=== PATIENT | male | born 1945 | race Caucasian/White ===

== ENCOUNTER → 2021-07-25 | Outpatient (CLI) | payer OTHER ==
[2021-07-25 19:01] LABS: BASOPHILS ABSOLUTE AUTO 0.03 K/mm3 (0.00-0.23); BASOPHILS PERCENT AUTO 0 % (0-2); EOSINOPHILS ABSOLUTE AUTO 0.07 K/mm3 (0.00-0.68); EOSINOPHILS PERCENT AUTO 1 % (0-6); Hematocrit 37.9 % (37.0-53.0); Hemoglobin 12.8 g/dL (13.5-17.5); IMMATURE GRAN ABSOLUTE AUTO 0.03 K/mm3 (0.00-0.10); IMMATURE GRAN PERCENT AUTO 0 % (0-1); LYMPHOCYTES ABSOLUTE AUTO 0.79 K/mm3 (0.84-5.20); LYMPHOCYTES PERCENT AUTO 11 % (21-46); MONOCYTES ABSOLUTE AUTO 0.55 K/mm3 (0.16-1.47); MONOCYTES PERCENT AUTO 8 % (4-13); Mean Corpuscular HGB 30.6 pg (26.0-34.0); Mean Corpuscular HGB Conc 33.8 g/dL (31.5-36.5); Mean Corpuscular Volume 91 fL (80-100); Mean Platelet Volume 10.1 fL (9.1-12.4); NEUTROPHILS ABSOLUTE AUTO 5.81 K/mm3 (1.96-9.15); NEUTROPHILS PERCENT AUTO 80 % (41-73); Platelet Count 321 K/mm3 (150-400); RDW Coefficient Variation 13.3 % (11.7-14.2); RDW Standard Deviation 43.7 fL (35.1-46.3); Red Blood Cell Count 4.18 M/mm3 (4.30-5.90); White Blood Cell Count 7.28 K/mm3 (4.00-11.30)
[2021-07-25 19:18] LABS: Alanine Aminotransfer (ALT/SGP 30 U/L (12-78); Albumin, Blood 3.8 g/dL (3.4-5.0); Albumin/Globulin Ratio 1.5 (0.8-1.8); Alk Phos 62 U/L (40-126); Anion Gap 5 mmol/L (6-16); Aspartate Aminotrans (AST/SGOT 19 U/L (12-37); Bilirubin, Total 0.4 mg/dL (0.1-1.0); Blood Urea Nitrogen 20 mg/dL (8-24); Bun/Creatinine Ratio 23.5 (12.0-20.0); CO2, Blood 30 mmol/L (21-32); Calcium, Blood 8.8 mg/dL (8.5-10.1); Chloride, Blood 106 mmol/L (98-108); Creatinine, Blood 0.85 mg/dL (0.60-1.20); Globulin, Blood 2.5 g/dL (2.2-4.0); Glomerular Filtration Rate >60 (60-); Glucose, Blood 108 mg/dL (70-99); Potassium, Blood 4.1 mmol/L (3.5-5.5); Sodium, Blood 141 mmol/L (136-145); Total Protein, Blood 6.3 g/dL (6.4-8.2)
== END | disposition home or self-care (01) ==
LOC: LAB SHORT 18:55
PROVIDERS: Physician Assistant
DX: R60.0 Localized edema (principal)
CPT/HCPCS: 80053; 83880; 85025

== ENCOUNTER 2022-03-18 00:43 | Emergency (ER) | payer OTHER ==
[~2022-03-18] VITALS: Ht 185.4 cm; Wt 68.0 kg
[2022-03-18 02:37] LABS: BASOPHILS ABSOLUTE AUTO 0.04 K/mm3 (0.00-0.23); BASOPHILS PERCENT AUTO 1 % (0-2); EOSINOPHILS ABSOLUTE AUTO 0.19 K/mm3 (0.00-0.68); EOSINOPHILS PERCENT AUTO 3 % (0-6); Hematocrit 33.9 % (37.0-53.0); Hemoglobin 11.5 g/dL (13.5-17.5); IMMATURE GRAN ABSOLUTE AUTO 0.01 K/mm3 (0.00-0.10); IMMATURE GRAN PERCENT AUTO 0 % (0-1); LYMPHOCYTES ABSOLUTE AUTO 1.24 K/mm3 (0.84-5.20); LYMPHOCYTES PERCENT AUTO 17 % (21-46); MONOCYTES ABSOLUTE AUTO 0.76 K/mm3 (0.16-1.47); MONOCYTES PERCENT AUTO 11 % (4-13); Mean Corpuscular HGB 30.3 pg (26.0-34.0); Mean Corpuscular HGB Conc 33.9 g/dL (31.5-36.5); Mean Corpuscular Volume 89 fL (80-100); Mean Platelet Volume 10.1 fL (9.1-12.4); NEUTROPHILS ABSOLUTE AUTO 5.02 K/mm3 (1.96-9.15); NEUTROPHILS PERCENT AUTO 69 % (41-73); Platelet Count 268 K/mm3 (150-400); RDW Coefficient Variation 13.1 % (11.7-14.2); RDW Standard Deviation 42.6 fL (35.1-46.3); White Blood Cell Count 7.26 K/mm3 (4.00-11.30)
[2022-03-18 02:54] LABS: Albumin, Blood 3.1 g/dL (3.4-5.0); Albumin/Globulin Ratio 1.2 (0.8-1.8); Bilirubin, Total 0.3 mg/dL (0.1-1.0); Bun/Creatinine Ratio 25.2 (12.0-20.0); Creatinine, Blood 0.79 mg/dL (0.60-1.20); Globulin, Blood 2.5 g/dL (2.2-4.0); Potassium, Blood 4.2 mmol/L (3.5-5.5); Total Protein, Blood 5.6 g/dL (6.4-8.2)
[2022-03-18 04:49] LABS: Source, Urine Straight Cath
[2022-03-18 05:09] LABS: Appearance, Urine Clear (Clear); Bilirubin, Urine Neg (Neg); Blood, Urine Neg (Neg); Color, Urine Yellow (P-Yellow); Glucose Qualitative, Urine Neg (Neg); Ketones, Urine 1+ (Neg); Leukocyte Esterase, Urine 1+ (Neg); Nitrite, Urine Neg (Neg); Protein, Urine 1+ (Neg); Specific Gravity, Urine 1.025 (1.003-1.022); Urobilinogen, Urine NORM (Normal)
[2022-03-18 05:30] LABS: Bacteria Rare /hpf; Red Blood Cells, Urine Not Seen /hpf (0-2); Squamous Epithelial Cells Rare /hpf (Few); White Blood Cells, Urine 0-2 /hpf (0-5)
[2022-03-18] MEDS ORDERED: POLYTRIM EYE DR10 M1 BOTHEYES (05:40)
== END 2022-03-18 06:25 | disposition home or self-care (01) ==
LOC: ER 00:43
PROVIDERS: Student in an Organized Health Care Education/Training Program
DX: Z04.3 Encounter for examination and observation following other accident (principal); H10.9 Unspecified conjunctivitis
CPT/HCPCS: 36415; 70450; 80053; 81001; 85025; 87086; A9270

== ENCOUNTER 2022-04-02 08:09 | Emergency (ER) | payer OTHER ==
[~2022-04-02] VITALS: Ht 185.4 cm; Wt 54.4 kg
[~2022-04-02 08:09] MED LIST: POLYTRIM EYE DR10 M1 BOTHEYES
[2022-04-02] MEDS ORDERED: Acetaminophen650 M1 PO (08:36)
[2022-04-02] MEDS ORDERED: ALUMINUM H320 MG/5 M PO (08:37)
[2022-04-02] MEDS ORDERED: Fiber625 MG PO (08:37)
[2022-04-02] MEDS ORDERED: HALO.5 PO (08:38)
[2022-04-02] MEDS ORDERED: FISH OIL 1,2001 EAC7 PO (08:38)
[2022-04-02] MEDS ORDERED: HYDHCL25 PO (08:41)
[2022-04-02] MEDS ORDERED: LOPE2C PO (08:41)
[2022-04-02] MEDS ORDERED: PROBIOTIC1 EA13 PO (08:42)
[2022-04-02] MEDS ORDERED: MIRALAX119 G2 PO (08:42)
[2022-04-02] MEDS ORDERED: PRESERVISION A1 EAC2 PO (08:42)
[2022-04-02] MEDS ORDERED: TRAZ50 PO (08:43)
[2022-04-02] MEDS ORDERED: Vitamin B-12100 MCG PO (08:43)
[2022-04-02] MEDS ORDERED: ZINC OXIDE57 GM TOP (08:43)
[2022-04-02] MEDS ORDERED: SENNA LAXATIVE8.6 MG PO (08:43)
[2022-04-02] MEDS ORDERED: THERA-D2000 UNIT PO (08:44)
== END 2022-04-02 10:01 | disposition home or self-care (01) ==
LOC: ER 08:09
DX: S09.90XA Unspecified injury of head, initial encounter (principal); W19.XXXA Unspecified fall, initial encounter
CPT/HCPCS: 70450; 72125

== ENCOUNTER 2022-09-22 13:44 | Emergency (ER) | payer OTHER ==
[~2022-09-22] VITALS: Ht 185.4 cm; Wt 65.8 kg
[~2022-09-22 13:44] MED LIST changes: +ALUMINUM H320 MG/5 M PO; +Acetaminophen650 M1 PO; +FISH OIL 1,2001 EAC7 PO; +Fiber625 MG PO; +HALO.5 PO; +HYDHCL25 PO; +LOPE2C PO; +MIRALAX119 G2 PO; +PRESERVISION A1 EAC2 PO; +PROBIOTIC1 EA13 PO; +SENNA LAXATIVE8.6 MG PO; +THERA-D2000 UNIT PO; +TRAZ50 PO; +Vitamin B-12100 MCG PO; +ZINC OXIDE57 GM TOP
[2022-09-22] MEDS ORDERED: RISP.5 PO (14:25)
[2022-09-22] MEDS ORDERED: ERYT.5TO BOTHEYES (14:26)
[2022-09-22 15:05] LABS: BASOPHILS ABSOLUTE AUTO 0.04 K/mm3 (0.00-0.23); BASOPHILS PERCENT AUTO 0 % (0-2); EOSINOPHILS ABSOLUTE AUTO 0.25 K/mm3 (0.00-0.68); EOSINOPHILS PERCENT AUTO 2 % (0-6); Hematocrit 35.1 % (37.0-53.0); Hemoglobin 11.7 g/dL (13.5-17.5); IMMATURE GRAN ABSOLUTE AUTO 0.04 K/mm3 (0.00-0.10); IMMATURE GRAN PERCENT AUTO 0 % (0-1); LYMPHOCYTES ABSOLUTE AUTO 0.76 K/mm3 (0.84-5.20); LYMPHOCYTES PERCENT AUTO 7 % (21-46); MONOCYTES PERCENT AUTO 10 % (4-13); Mean Corpuscular HGB Conc 33.3 g/dL (31.5-36.5); Mean Corpuscular Volume 93 fL (80-100); Mean Platelet Volume 9.6 fL (9.1-12.4); NEUTROPHILS ABSOLUTE AUTO 8.44 K/mm3 (1.96-9.15); NEUTROPHILS PERCENT AUTO 80 % (41-73); Platelet Count 287 K/mm3 (150-400); RDW Coefficient Variation 13.9 % (11.7-14.2); RDW Standard Deviation 47.4 fL (35.1-46.3); Red Blood Cell Count 3.78 M/mm3 (4.30-5.90); White Blood Cell Count 10.53 K/mm3 (4.00-11.30)
[2022-09-22 15:34] LABS: Albumin, Blood 3.2 g/dL (3.4-5.0); Albumin/Globulin Ratio 1.1 (0.8-1.8); Bilirubin, Total 0.3 mg/dL (0.1-1.0); Bun/Creatinine Ratio 32.7 (12.0-20.0); Creatinine, Blood 0.7 mg/dL (0.60-1.20); Globulin, Blood 2.8 g/dL (2.2-4.0); Potassium, Blood 4.4 mmol/L (3.5-5.5)
[2022-09-22 17:00] VITALS: BP 135/87
== END 2022-09-22 17:33 | disposition home or self-care (01) ==
LOC: ER 13:44
PROVIDERS: Emergency Medicine
DX: M79.604 Pain in right leg (principal); W19.XXXA Unspecified fall, initial encounter; Z79.899 Other long term (current) drug therapy
CPT/HCPCS: 36415; 70450; 72170; 80053; 85025; 93005; 93010

== ENCOUNTER 2022-09-24 15:00 | Emergency (ER) | payer OTHER ==
[~2022-09-24] VITALS: Ht 185.4 cm; Wt 65.8 kg
[~2022-09-24 15:00] MED LIST changes: +ERYT.5TO BOTHEYES; +RISP.5 PO
[2022-09-24 16:30] VITALS: BP 90/31
== END 2022-09-24 17:11 | disposition home or self-care (01) ==
LOC: ER 15:00
DX: M79.604 Pain in right leg (principal); W18.30XA Fall on same level, unspecified, initial encounter; Z79.899 Other long term (current) drug therapy
CPT/HCPCS: 70450; 72170; 73552

== ENCOUNTER 2023-01-09 14:59 | Emergency (ER) | payer OTHER ==
[~2023-01-09] VITALS: Ht 175.3 cm; Wt 68.0 kg
[~2023-01-09 14:59] MED LIST changes: +CODACE30 PO
[2023-01-09 15:35] VITALS: BP 117/71
[2023-01-09] MEDS ORDERED: ACET500 PO (17:12)
== END 2023-01-09 19:04 | disposition home or self-care (01) ==
LOC: ER 14:59
DX: S70.02XA Contusion of left hip, initial encounter (principal); W19.XXXA Unspecified fall, initial encounter; Z79.2 Long term (current) use of antibiotics; Z79.02 Long term (current) use of antithrombotics/antiplatelets; Z79.890 Hormone replacement therapy; Z79.899 Other long term (current) drug therapy
CPT/HCPCS: 73502; 99284-25; A9270

== ENCOUNTER 2023-01-25 15:23 | Inpatient (IN) | payer OTHER ==
[~2023-01-25] VITALS: Ht 180.3 cm; Wt 66.2 kg
[~2023-01-25 15:23] MED LIST changes: +ACET500 PO
[2023-01-25 19:15] VITALS: BP 148/87
[2023-01-25 19:29] LABS: BASOPHILS ABSOLUTE AUTO 0.03 K/mm3 (0.00-0.23); BASOPHILS PERCENT AUTO 0 % (0-2); EOSINOPHILS ABSOLUTE AUTO 0.12 K/mm3 (0.00-0.68); EOSINOPHILS PERCENT AUTO 1 % (0-6); Hematocrit 38.1 % (37.0-53.0); Hemoglobin 12.7 g/dL (13.5-17.5); IMMATURE GRAN ABSOLUTE AUTO 0.06 K/mm3 (0.00-0.10); IMMATURE GRAN PERCENT AUTO 0 % (0-1); LYMPHOCYTES ABSOLUTE AUTO 1.14 K/mm3 (0.84-5.20); LYMPHOCYTES PERCENT AUTO 8 % (21-46); MONOCYTES ABSOLUTE AUTO 0.69 K/mm3 (0.16-1.47); MONOCYTES PERCENT AUTO 5 % (4-13); Mean Corpuscular HGB 30.5 pg (26.0-34.0); Mean Corpuscular HGB Conc 33.3 g/dL (31.5-36.5); Mean Corpuscular Volume 91 fL (80-100); NEUTROPHILS ABSOLUTE AUTO 11.65 K/mm3 (1.96-9.15); NEUTROPHILS PERCENT AUTO 85 % (41-73); Platelet Count 336 K/mm3 (150-400); RDW Coefficient Variation 13.4 % (11.7-14.2); RDW Standard Deviation 44.8 fL (35.1-46.3); Red Blood Cell Count 4.17 M/mm3 (4.30-5.90); White Blood Cell Count 13.69 K/mm3 (4.00-11.30)
[2023-01-25 19:45] LABS: Albumin, Blood 3.7 g/dL (3.4-5.0); Albumin/Globulin Ratio 1.2 (0.8-1.8); Bilirubin, Total 0.2 mg/dL (0.1-1.0); Bun/Creatinine Ratio 37.6 (12.0-20.0); Calcium, Blood 9.1 mg/dL (8.5-10.1); Creatinine, Blood 0.69 mg/dL (0.60-1.20); Potassium, Blood 3.9 mmol/L (3.5-5.5); Total Protein, Blood 6.7 g/dL (6.4-8.2)
[2023-01-26] VITALS (14 sets, daily range): BP systolic 97–146; BP diastolic 58–84
[2023-01-26 05:34] LABS: BASOPHILS ABSOLUTE AUTO 0.02 K/mm3 (0.00-0.23); BASOPHILS PERCENT AUTO 0 % (0-2); EOSINOPHILS ABSOLUTE AUTO 0.09 K/mm3 (0.00-0.68); EOSINOPHILS PERCENT AUTO 1 % (0-6); Hematocrit 35.2 % (37.0-53.0); Hemoglobin 11.9 g/dL (13.5-17.5); IMMATURE GRAN ABSOLUTE AUTO 0.05 K/mm3 (0.00-0.10); IMMATURE GRAN PERCENT AUTO 0 % (0-1); LYMPHOCYTES ABSOLUTE AUTO 0.62 K/mm3 (0.84-5.20); LYMPHOCYTES PERCENT AUTO 5 % (21-46); MONOCYTES ABSOLUTE AUTO 1.03 K/mm3 (0.16-1.47); MONOCYTES PERCENT AUTO 8 % (4-13); Mean Corpuscular HGB 30.5 pg (26.0-34.0); Mean Corpuscular HGB Conc 33.8 g/dL (31.5-36.5); Mean Corpuscular Volume 90 fL (80-100); Mean Platelet Volume 10.4 fL (9.1-12.4); NEUTROPHILS PERCENT AUTO 87 % (41-73); Platelet Count 295 K/mm3 (150-400); RDW Coefficient Variation 13.6 % (11.7-14.2); RDW Standard Deviation 44.9 fL (35.1-46.3); White Blood Cell Count 13.51 K/mm3 (4.00-11.30)
[2023-01-26 06:05] LABS: Bun/Creatinine Ratio 28.4 (12.0-20.0); Calcium, Blood 8.7 mg/dL (8.5-10.1); Creatinine, Blood 0.81 mg/dL (0.60-1.20); Potassium, Blood 4.1 mmol/L (3.5-5.5)
[2023-01-27 04:13] VITALS: BP 134/70
[2023-01-27 05:05] LABS: BASOPHILS ABSOLUTE AUTO 0.02 K/mm3 (0.00-0.23); BASOPHILS PERCENT AUTO 0 % (0-2); EOSINOPHILS ABSOLUTE AUTO 0.12 K/mm3 (0.00-0.68); EOSINOPHILS PERCENT AUTO 1 % (0-6); Hematocrit 32.4 % (37.0-53.0); Hemoglobin 10.7 g/dL (13.5-17.5); IMMATURE GRAN ABSOLUTE AUTO 0.03 K/mm3 (0.00-0.10); IMMATURE GRAN PERCENT AUTO 0 % (0-1); LYMPHOCYTES ABSOLUTE AUTO 0.87 K/mm3 (0.84-5.20); LYMPHOCYTES PERCENT AUTO 8 % (21-46); MONOCYTES ABSOLUTE AUTO 1.01 K/mm3 (0.16-1.47); MONOCYTES PERCENT AUTO 9 % (4-13); Mean Corpuscular HGB 30.5 pg (26.0-34.0); Mean Corpuscular Volume 92 fL (80-100); Mean Platelet Volume 10.6 fL (9.1-12.4); NEUTROPHILS ABSOLUTE AUTO 8.73 K/mm3 (1.96-9.15); NEUTROPHILS PERCENT AUTO 81 % (41-73); Platelet Count 243 K/mm3 (150-400); RDW Coefficient Variation 13.8 % (11.7-14.2); RDW Standard Deviation 46.4 fL (35.1-46.3); Red Blood Cell Count 3.51 M/mm3 (4.30-5.90); White Blood Cell Count 10.78 K/mm3 (4.00-11.30)
--- NOTE | 2023-01-27 05:25 | NUR ---
SHIFT SUMMARY PT HAS ADVANCED DEMENTIA, NONVERBAL. NO ACUTE CHANGES, VSS. MEDICATING FOR PAIN PER EMAR. TOLERATING PO INTAKE. PT HAS NOT BEEN OUT OF BED YET, BUT WBAT ON LEFT LEG. PT IS INCONTINENT AND UNABLE TO COMMUNICATE NEEDS, ATTENDS IN PLACE. AQUACEL TO L HIP C/D/I. BED IN LOWEST POSITION, ALARM ON. CALL LIGHT WITHIN REACH.
[2023-01-27 06:28] LABS: Albumin, Blood 2.9 g/dL (3.4-5.0); Anion Gap 3 mmol/L (6-16); Blood Urea Nitrogen 27 mg/dL (8-24); Bun/Creatinine Ratio 30.8 (12.0-20.0); CO2, Blood 27 mmol/L (21-32); Calcium, Blood 8.7 mg/dL (8.5-10.1); Chloride, Blood 108 mmol/L (98-108); Creatinine, Blood 0.88 mg/dL (0.60-1.20); Glomerular Filtration Rate 89 (60-); Glucose, Blood 122 mg/dL (70-99); Phosphorus, Blood 2.2 mg/dL (2.5-4.9); Potassium, Blood 4.1 mmol/L (3.5-5.5); Sodium, Blood 138 mmol/L (136-145)
[2023-01-27 07:13] VITALS: BP 114/70
--- NOTE | 2023-01-27 13:10 | NUR ---
Pt. is awake in med when I entered the room. Pt. is pleasantly confused and other than nods did not verbally communicate. Though Pt. did not respond, prayer was offered and given.
[2023-01-27 15:49] VITALS: BP 112/81
--- NOTE | 2023-01-27 17:53 | NUR ---
POD1 L POSERTIOR GENA HIP, A/XO4, VSS, TOLERATING PO WITH FEEDING ASSISTANCE, MINIMAL FLUID INTAKE SO FAR THIS SHIFT HE DOESN'T SEEM TO DRINK ON HIS OWN, BLADDER SCAN SHOWS LESS THAN 300ML. DC PLANNING PENDING RESPONSE FROM [facility]. NO ACUTE EVENTS THIS SHIFT, CALL LIGHT IN REACH.
[2023-01-27 19:48] VITALS: BP 123/75
--- NOTE | 2023-01-28 05:18 | NUR ---
SHIFT SUMMARY POD 2 L GENA ARTHRO OF HIP. POSTERIOR HIP PRECAUTIONS IN PLACE. AQUACEL IN PLACE, C/D/I. HX OF ADVANCED DEMENTIA, GRABBY WHILE RECEIVING CARE. PT ALERT, OFTEN MUMBLES WHEN ATTEMPTING TO COMMUNICATE AND UNABLE TO ANSWER QUESTIONS. VSS, INCONT X3 THIS SHIFT W/ ATTENDS IN PLACE. IV FLUIDS ORDERED R/T DECREASE IN ORAL INTAKE. PT MEDS ADMINISTERED CRUSHED IN APPLESAUSE AND TOLERATED WELL. PT SLEPT WELL T/O NIGHT. NO ACUTE CHANGES THIS SHIFT. CALL LIGHT W/IN REACH ALTHOUGH PT NOT COGNITIVELY ABLE TO USE. FREQUENT MONITORING.
[2023-01-28 06:24] VITALS: BP 104/62
[2023-01-28 07:31] VITALS: BP 103/52
--- NOTE | 2023-01-28 12:02 | NUR ---
Met with patient and his and Dr. Negron. review of prognosis and how this event could possibly enhance his progression of his disease. Dr Negron reviewed possible rehab as option but limited. would like to try. Review of if rehab not progressing or to much stress suggest transitioning to hospice. Review of offering dignity and comfort and him not coming into ER or hospital admissions. was very understancing and accepting of the offered caree plan. 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
[2023-01-28 14:28] VITALS: BP 116/70
--- NOTE | 2023-01-28 16:28 | NUR ---
SHIFT SUMMARY- PT IS ALERT AND PLESANT. HIS SPEECH IS MUMBLED. FAMILY WAS AT BEDSIDE THIS SHIFT. , DR. HARTLEY AND WILD FROM [facility] SPOKE WITH TO DISCUSS PLAN AFTER DISCHARGE. UNCLEAR AT THIS POINT IF PT WILL BE RETURNING TO [facility] OR NOT. HE RECIEVED A BEDBATH THIS SHIFT. MEDICATED PRIOR TO BATH. PT APPETITE IS POOR, HE DID EAT APPLESAUSE AND DRANK HIS V8 FROM A SPOON, ORDERED A PUREE DIET FOR DINNER TO SEE IF HE TOLORATES THIS BETTER. HIS BED IS IN THE LOW POSITION AND CALL LIGHT IS WITIN REACH/
[2023-01-28 19:46] VITALS: BP 117/86
[2023-01-29 03:12] VITALS: BP 115/81
--- NOTE | 2023-01-29 03:51 | NUR ---
O2 SAT OF 89 DONE AT 0312 WAS AN INACCURATE READING DUE TO MOVEMENT. RECHECKED AND O2 SAT WAS UP TO 96
[2023-01-29 07:24] VITALS: BP 111/64
--- NOTE | 2023-01-29 07:24 | NUR ---
SUMMARY DIFFICULT TO INCREASE ACTIVITY DUE TO LIMITATION OF ALZHEIMERS.
[2023-01-29 14:41] VITALS: BP 94/66
--- NOTE | 2023-01-29 17:54 | NUR ---
SHIFT SUMMARY PT PLEASANT, REPOSITIONS WITH ASSIST, FULL MEAL ASSIST/ATE ALL BREAKFAST AND LUNCH, INCONTINENT/ATTENDS ON, PAIN WORSENS WITH REPOSITIONS, BOWEL CARE STARTED TODAY. WILL REPORT TO ONCOMING ANDRY RN.
[2023-01-29 19:29] VITALS: BP 118/65
[2023-01-30 02:50] VITALS: BP 127/73
[2023-01-30 07:00] VITALS: BP 104/63
--- NOTE | 2023-01-30 08:03 | NUR ---
SUMMARY PT CONT CONFUSED AND UNABLE TO PARTICIPATE IN CARE.
[2023-01-30 14:52] VITALS: BP 104/64
--- NOTE | 2023-01-30 16:08 | NUR ---
SUMMARY: PT IS S/P L HIP REPAIR, VSS. SEVER DEMENTIA, DISORIENTED AND DOES NOT RESPOND TO QUESTIONS AT BASELINE. NO ACUTE CHANGE TODAY, ALERT AND DIFFICULT TO GIVE CARE, AND TURN WITH PT CONFUSION AND ANXIETY. WHEN PT NOT BEING REPOSITIONED, PT APPEARS COMFORTABLE AND RESTFUL. SURGICAL SITE WNL. NEW PREVENTATIVE MEPLIEX PLACED TO COCCYX. PT GIVEN TYLENOL PRN FOR PAIN WHEN STAFF REPOSITION AND CHANGE. PT HAD BM TODAY AND IS VOIDING WELL. SEE LIQUOR GRINDING MILL OPERATOR NOTES FOR PLAN, OPTION OF SNF VS. HOME ON COMFORT CARE DISCUSSED WITH PT AND DAUGHTER TODAY.
[2023-01-30 19:53] VITALS: BP 95/58
[2023-01-31 03:32] VITALS: BP 97/63
[2023-01-31 05:03] LABS: BASOPHILS ABSOLUTE AUTO 0.03 K/mm3 (0.00-0.23); BASOPHILS PERCENT AUTO 1 % (0-2); EOSINOPHILS ABSOLUTE AUTO 0.28 K/mm3 (0.00-0.68); EOSINOPHILS PERCENT AUTO 6 % (0-6); Hematocrit 30.5 % (37.0-53.0); Hemoglobin 10.1 g/dL (13.5-17.5); IMMATURE GRAN ABSOLUTE AUTO 0.01 K/mm3 (0.00-0.10); IMMATURE GRAN PERCENT AUTO 0 % (0-1); LYMPHOCYTES ABSOLUTE AUTO 1.07 K/mm3 (0.84-5.20); LYMPHOCYTES PERCENT AUTO 22 % (21-46); MONOCYTES ABSOLUTE AUTO 0.57 K/mm3 (0.16-1.47); MONOCYTES PERCENT AUTO 12 % (4-13); Mean Corpuscular HGB 30.3 pg (26.0-34.0); Mean Corpuscular HGB Conc 33.1 g/dL (31.5-36.5); Mean Corpuscular Volume 92 fL (80-100); Mean Platelet Volume 9.6 fL (9.1-12.4); NEUTROPHILS PERCENT AUTO 61 % (41-73); Platelet Count 298 K/mm3 (150-400); RDW Coefficient Variation 13.2 % (11.7-14.2); RDW Standard Deviation 43.8 fL (35.1-46.3); Red Blood Cell Count 3.33 M/mm3 (4.30-5.90); White Blood Cell Count 4.96 K/mm3 (4.00-11.30)
[2023-01-31 05:53] LABS: Albumin, Blood 2.4 g/dL (3.4-5.0); Anion Gap 4 mmol/L (6-16); Blood Urea Nitrogen 17 mg/dL (8-24); Bun/Creatinine Ratio 25.4 (12.0-20.0); CO2, Blood 28 mmol/L (21-32); Calcium, Blood 8.4 mg/dL (8.5-10.1); Chloride, Blood 107 mmol/L (98-108); Creatinine, Blood 0.67 mg/dL (0.60-1.20); Glomerular Filtration Rate 97 (60-); Glucose, Blood 106 mg/dL (70-99); Phosphorus, Blood 3.6 mg/dL (2.5-4.9); Potassium, Blood 4.2 mmol/L (3.5-5.5); Sodium, Blood 139 mmol/L (136-145)
--- NOTE | 2023-01-31 07:27 | NUR ---
SHIFT SUMMARY POD #5 L.GENA NO ACUTE CHANGES NOTED THROUGH THE NIGHT, ON RA, VSS, Q2 TURNS, ATTENDS CHANGED PRN, VOIDING WNL, PT WAS GIVEN ULTRAM & TYLENOL X1 FOR PAIN, PT APPEARS TO BE COMFORTABLE AT REST BUT BECOMES ANXIOUS & SHOWS SIGNS OF PAIN WITH MOVEMENT, NO CHANGES IN REACTION NOTED AFTER PAIN MEDS WERE GIVEN, REPORT GIVEN TO DAY RN, CALL LIGHT IN REACH, BED ALARM IS ON FOR SAFETY.
--- NOTE | 2023-01-31 09:53 | NUR ---
PRE MEDICATED FOR EVAL BY [facility]. PT TOOK SOME MORNING MEDICATIONS BEFORE REFUSING TO OPEN MOUTH & TAKE ANYMORE.
[2023-01-31 11:11] VITALS: BP 107/51
[2023-01-31 16:26] VITALS: BP 91/53
--- NOTE | 2023-01-31 18:31 | NUR ---
SHIFT SUMMARY WAS ABLE TO WORK w/ THERAPY & BE EVALUATED BY [facility]. PLAN TO DC TO [facility] MOST LIKELY THURSDAY. DENIED BREAKFAST BUT ATE 100% LUNCH & DINNER. SCHED TYLENOL & TRAMADOL x 1.
[2023-01-31 19:14] VITALS: BP 98/58
[2023-02-01 03:42] VITALS: BP 88/55
--- NOTE | 2023-02-01 04:32 | NUR ---
SHIFT SUMMARY POD 6 L GENA HIP. NO ACUTE CHANGES OVERNIGHT. VS WNL FOR PT, O2 SAT >95% ON RA. AQUACEL C/D/I. MEPILEX IN PLACE OVER COCCYX. HX SEVERE DEMENTIA, PT DOES NOT VERBALLY RESPOND TO QUESTIONS. WHILE LYING IN BED, PT APPEARS TO BE COMFORTABLE. PT HAS INCREASED AGITATION WHEN BEING REPOSITIONED. TOLERATING PO DIET. PT INCONTINENT, ATTENS IN PLACE. PT IS PLANNING TO D/C LATER TODAY TO [facility]. BED IN LOWEST POSITION, BED ALARM ON, WILL REPORT TO DAY NURSE.
[2023-02-01 05:08] VITALS: BP 105/73
[2023-02-01 07:25] VITALS: BP 112/65
[2023-02-01 14:26] VITALS: BP 99/68
--- NOTE | 2023-02-01 16:06 | NUR ---
SHIFT SUMMARY NO ACUTE CHANGES THIS SHIFT. PT ALERT AND ONLY ORIENTED TO SELF. HAS BEEN RESTING IN BED TODAY. APPEARS TO BE COMFORTABLE AT REST AND ONLY APPEARS TO BE IN PAIN WITH MOVEMENT OR REPOSITIONING. SCHEDULED TYLENOL FOR PAIN MANAGEMENT. AQUACEL DRESSING TO LEFT HIP REMAINS CDI. ATTENDS CHANGES PRN. PLAN FOR PT TO DISCHARGE BACK TO [facility] TOM[facility]ROW. FAMILY VISITED TODAY. CALL LIGHT WITHIN REACH. BED ALARM IN PLACE.
[2023-02-01 19:06] VITALS: BP 110/67
[2023-02-02 03:34] VITALS: BP 116/67
--- NOTE | 2023-02-02 04:40 | NUR ---
SHIFT SUMMARY POD 7 L GENA HIP. AQUACEL C/D/I. NO ACUTE CHANGES THIS SHIFT. VS WNL ON RA. PT APPEARS COMFORTABLE AT REST. PREMEDICATED FOR ATTENS CHANGE AND ROMA CARE, PT CONTINUES TO SHOW SIGNS OF PAIN WITH MOVEMENT. SMEAR BM THIS SHIFT. PT APPEARS COMFORTABLE WHEN RESTING IN BED. ANTICIPATED D/C LATER THIS AM TO [facility] CARE [facility]ILITY. BED IN LOWEST POSITION, CRAWFORD ALARM ON, WILL REPORT TO DAY RN.
[2023-02-02 04:50] LABS: BASOPHILS ABSOLUTE AUTO 0.04 K/mm3 (0.00-0.23); BASOPHILS PERCENT AUTO 1 % (0-2); EOSINOPHILS ABSOLUTE AUTO 0.33 K/mm3 (0.00-0.68); EOSINOPHILS PERCENT AUTO 4 % (0-6); Hematocrit 34.8 % (37.0-53.0); Hemoglobin 11.4 g/dL (13.5-17.5); IMMATURE GRAN ABSOLUTE AUTO 0.04 K/mm3 (0.00-0.10); IMMATURE GRAN PERCENT AUTO 1 % (0-1); LYMPHOCYTES ABSOLUTE AUTO 1.16 K/mm3 (0.84-5.20); LYMPHOCYTES PERCENT AUTO 15 % (21-46); MONOCYTES ABSOLUTE AUTO 0.74 K/mm3 (0.16-1.47); MONOCYTES PERCENT AUTO 10 % (4-13); Mean Corpuscular HGB 30.2 pg (26.0-34.0); Mean Corpuscular HGB Conc 32.8 g/dL (31.5-36.5); Mean Corpuscular Volume 92 fL (80-100); Mean Platelet Volume 9.9 fL (9.1-12.4); NEUTROPHILS ABSOLUTE AUTO 5.44 K/mm3 (1.96-9.15); NEUTROPHILS PERCENT AUTO 70 % (41-73); Platelet Count 408 K/mm3 (150-400); RDW Coefficient Variation 12.9 % (11.7-14.2); RDW Standard Deviation 43.3 fL (35.1-46.3); Red Blood Cell Count 3.78 M/mm3 (4.30-5.90); White Blood Cell Count 7.75 K/mm3 (4.00-11.30)
[2023-02-02] MEDS ORDERED: TRAM50 PO (14:18)
[2023-02-02 14:20] VITALS: BP 95/58
--- NOTE | 2023-02-02 18:47 | NUR ---
SHIFT SUMMARY PT AWAKE, DEMENTIA BASELINE, VSS/RA, ADRIANNA PO FULL MEAL ASSIST & ENCOURAGE, PAIN MANAGED WITH TYLENOL, INCONTINENT VOID/ATTENDS ON, BM TODAY. WILL REPORT TO ONCOMING NOC RN.
[2023-02-02 19:09] VITALS: BP 125/72
--- NOTE | 2023-02-03 04:17 | NUR ---
SHIFT SUMMARY PT HAS DONE WELL T/O SHIFT. HAS TOLERATED TURNS AND ATTENDS CHANGES W/O DIFFICULTY. APPEARED TO SLEEP COMFORTABLY FOLLOWING TRAZADONE.
[2023-02-03 05:16] VITALS: BP 131/72
[2023-02-03 07:27] VITALS: BP 129/71
[2023-02-03 10:00] VITALS: BP 141/76
--- NOTE | 2023-02-03 11:06 | NUR ---
Spoke with RN Hvac Maintenance Technician Junior and discussed case. Pt may benefit from evaluation for hospice appropriateness. Pt resting in bed and is mostly verbally non responsive. Pt attempted twice to respond verbally but short incoharent 1 word response. Pt appears comfortable with no S/S of distress at this time. Pt appears lethargic. Spoke wit Primary RN Alexia and discussed case. Pt requires assistance with all ADLs. Pt unable to have meaningful conversation and unable to sit up without assist and requires assistance maintaining sitting up. Pt requires assistance with feeding, transfers, does not ambulate, needs assistance with bathing, dressing, and is incontinent of bowel and bladder. PPS 30% ADLs 6/6 FAST 7D Albumin 2.4 Pt appears appropriate for hospice if family would like to move in this direction. Palliative Care will remain available
--- NOTE | 2023-02-03 13:32 | NUR ---
SHIFT SUMMARY PT AT DEMENTIA BASELINE, WAKES EASILY, RESPONDS PLEASANTLY, TAKES MEDS CRUSHED WITH APPLESAUCE, VSS/RA, ADRIANNA PO/FULL MEAL ASSIST, PAIN MANAGED WITH TYLENOL, INCONTINENT VOID/ATTENDS ON, Q2 TURNS. WILL REPORT TO NEXT RN.
[2023-02-03 14:21] VITALS: BP 104/62
[2023-02-03 19:17] VITALS: BP 118/74
[2023-02-03 19:19] VITALS: BP 118/74
--- NOTE | 2023-02-04 04:43 | NUR ---
SHIFT SUMMARY POD9 L GENA HIP PT A&O X1 TO SELF, WAKES EASLIY. ABLE TO REST ALL NIGHT. PULSES STRONG, ABLE TO MOVE AND WIGGLE TOES. INCONTINENT OF BOWEL AND BLADDER, ATTENDS CHANGED. PAIN MANAGED WITH TYLENOL. PLACEMENT AT [facility] AWAIT EVAL THIS MORNING. NO OTHER CONCERNS AT THIS TIME. CALL LIGHT BELLA PRICE.
[2023-02-04 05:10] VITALS: BP 119/96
[2023-02-04 07:01] VITALS: BP 111/55
[2023-02-04 14:27] VITALS: BP 90/58
--- NOTE | 2023-02-04 16:15 | NUR ---
DISCHARGE SUMMARY POD9 L GENA HIP WITH POSTERIOR PRECAUTIONS, ALERTS TO VOICE BUT ORIENTED X0, AQUACELL TO L HIP C/D/I, IV ACCESS REMOVED PRIOR TO SUPERVISOR SIGN SHOP BY EMS FOR TRANSPORT BACK [facility] FOR TRANSITION TO HOSPICE CARE. HIS WAS PRESENT AT TIME OF SUPERVISOR SIGN SHOP AND WAS TO FOLLOW HIM OVER TO [facility].
== END 2023-02-04 14:15 | disposition home or self-care (01) | DRG 522 ==
LOC: ER 15:23 → MEDS 15:24 → SURS 15:24
PROVIDERS: Emergency Medicine; Family Medicine; Orthopaedic Surgery; ADMIT Internal Medicine
PROC: 0SRS0JZ Replacement of Left Hip Joint, Femoral Surface with Synthetic Substitute, Open Approach (ICD-10-PCS; principal; 2023-01-26 08:00)
DX: S72.002A Fracture of unspecified part of neck of left femur, initial encounter for closed fracture (principal); N40.0 Benign prostatic hyperplasia without lower urinary tract symptoms; G30.9 Alzheimer's disease, unspecified; D63.8 Anemia in other chronic diseases classified elsewhere; Z66 Do not resuscitate; G47.33 Obstructive sleep apnea (adult) (pediatric); F02.80 Dementia in other diseases classified elsewhere, unspecified severity, without behavioral disturbance, psychotic disturbance, mood disturbance, and anxiety; E78.5 Hyperlipidemia, unspecified; W18.39XA Other fall on same level, initial encounter; Z79.899 Other long term (current) drug therapy
CPT/HCPCS: 36415; 72170; 73502; 80048; 80053; 80069; 85025; 93005; 93010; 94760; 96372-59; 96374; 96375; 97162; 97166; 97530; 99285-25; A9270; C1776; J0171; J0690; J0735; J1100; J1630; J1644; J1885; J2270; J2405; J2704; J2795; J3010; J7040